=== PATIENT | male | born 1985 | race African-American/Black ===

== ENCOUNTER 2018-11-13 00:07 | Emergency (ER) | payer MEDICARE, MEDICAID ==
[~2018-11-13] VITALS: Ht 172.7 cm; Wt 68.0 kg
[2018-11-13] MEDS ORDERED: SODIUM CHLORIDE 0.9% 1,000 ML IV ONE (00:30)
[2018-11-13] MEDS ORDERED: KETOROLAC 30MG/ML VIAL IV ONE (00:30)
[2018-11-13] MEDS ORDERED: ONDANSETRON HCL 4MG/2ML INJ IV ONE (00:30)
[2018-11-13 02:36] VITALS: BP 115/64
== END 2018-11-13 02:37 | disposition home or self-care (01) ==
LOC: ER 00:07
DX: R11.2 Nausea with vomiting, unspecified (principal); R10.9 Unspecified abdominal pain; K29.70 Gastritis, unspecified, without bleeding; F12.10 Cannabis abuse, uncomplicated; F17.210 Nicotine dependence, cigarettes, uncomplicated
CPT/HCPCS: 96361; 96374; 96375; 99283; J1885; J2405; J7030